=== PATIENT | female | born 1945 | race African-American/Black ===

== ENCOUNTER 2018-10-01 18:27 | Inpatient (IN) | payer OTHER ==
[~2018-10-01] VITALS: Ht 154.9 cm; Wt 71.2 kg
[~2018-10-01 18:27] MED LIST: AMLODIPINE BESY10 MG PO; AMOXICILLIN 50500 M1 PO; BENEFIBER1 EACH PO; CARISOPRODOL 3350 MG PO; CARVEDILOL25 MG PO; COUMADIN 3 MG TA3 M1 PO; COUMADIN 5 MG TA5 M1; COZAAR 25 MG TA25 M2 PO; KLOR-CON M2020 MEQ PO; LASIX 40 MG TAB40 M2 PO; LOFIBRA160 MG PO; LOTREL 5-10 MG1 EACH PO; MEDROLDOSEPACK PO; NICORELIEF4 MG BC; NORCO 10-325 T1 EACH PO; PRILOSEC20 MG PO; RESTORIL30 MG PO
[2018-10-01 18:28] VITALS: BP 133/92
[2018-10-01] MEDS ORDERED: NEURONTIN600 MG PO (18:37)
[2018-10-01] MEDS ORDERED: COUMADIN 5 MG TA5 M1 PO (18:38)
[2018-10-01 20:33] LABS: URINE BILIRUBIN NEGATIVE (Negative); URINE BLOOD TRACE (Negative); URINE CLARITY CLEAR; URINE COLOR YELLOW; URINE GLUCOSE-RANDOM* NEGATIVE (Negative); URINE KETONES NEGATIVE (Negative); URINE LEUKOCYTES-REFLEX NEGATIVE (Negative); URINE NITRITE-REFLEX NEGATIVE (Negative); URINE PROTEIN (DIPSTICK) 2+ (Negative); URINE SPECIFIC GRAVITY >= 1.030 (1.005-1.035); URINE UROBILINOGEN 0.2 E.U./dl (0.2-1.0)
[2018-10-01 20:35] LABS: ABSOLUTE NEUTROPHILS 5.6 thou/uL (1.4-8.2); BASOPHILS 0.8 % (0.0-2.0); EOSINOPHILS 1.8 % (0.0-3.0); HEMATOCRIT 40.8 % (37.0-47.0); HEMOGLOBIN 13.9 gm/dL (12.0-15.0); LYMPHOCYTES 19.9 % (24.0-44.0); MCH 31.9 pg (26.0-34.0); MCHC 34.2 g/dL (28.0-37.0); MCV 93.3 fL (80.0-100.0); MONOCYTES 7.2 % (1.0-8.0); PLATELET COUNT 239 thou/uL (150-400); POLYS 70.3 % (36.0-66.0); RBC 4.37 mil/uL (4.20-5.00); RDW 13.6 % (10.5-14.5)
[2018-10-01 20:37] LABS: HYALINE CASTS 4-10 Moderate /LPF (None Seen); SQUAMOUS >10 Many /LPF (0-3)
[2018-10-01 20:38] LABS: URINE WBC-REFLEX 0-5 Rare /HPF (0-5)
[2018-10-01 20:39] LABS: BACTERIA-REFLEX None Seen /HPF (None Seen); CRYSTALS None Seen /LPF (None Seen); URINE RBC 0-2 Rare /HPF (0-2)
[2018-10-01 20:42] LABS: ANION GAP 10 mmol/L (7-16); BUN 23 mg/dL (7-18); CALCIUM 9.3 mg/dL (8.5-10.1); CHLORIDE 107 mmol/L (98-107); CO2 27 mmol/L (21-32); CREATININE 1.6 mg/dL (0.6-1.0); GLUCOSE 160 mg/dL (74-106); POTASSIUM 3.6 mmol/L (3.5-5.1); SODIUM 144 mmol/L (136-145)
[2018-10-01 20:44] LABS: AMP/METHAMP Negative (Negative); BARBITURATES Negative (Negative); BENZODIAZEPINES Negative (Negative); COCAINE Negative (Negative); METHADONE Negative (Negative); OPIATES POSITIVE (Negative); PCP Negative (Negative)
[2018-10-01 20:51] LABS: TROPONIN-I <0.06 ng/mL (<0.06)
[2018-10-01 22:31] LABS: CSF GLUCOSE 102 mg/dL (40-70); CSF PROTEIN 50 mg/dL (15-45)
[2018-10-01 22:48] LABS: CSF CLARITY CLEAR; CSF COLOR COLORLESS; CSF POLYS 0; CSF RBC 0 /mm3; CSF WBC 0 /mm3 (0-10); VOLUME 4 ml
--- NOTE | 2018-10-02 06:41 | NUR ---
BEHAVIORAL HEALTH NOTIFIED OF REQUEST FOR SCREENING. DR ROPER HAS TALKED WITH DAUGHTER REGARDING BEHAVIOR
[2018-10-02 11:40] VITALS: BP 142/76
[2018-10-02 12:30] VITALS: BP 181/100
--- NOTE | 2018-10-02 13:45 | NUR ---
1220: Admitted to room 258-A via gerney from [facility] ER, ambulatory from gerney to hospital bed, gait steady, pt noted to be hyper verbal, anxious, impulsive and unable to concentrate on tasks, Dr. Bryant present on unit, given update on admission. Admission assessment completed, VS done and charted, ht and wt entered. Visiting times, personal belongings policy reviewed with pt and dtr Anai, security code given to dtr, welcome packet given to dtr and to pt, questions answered. Pt observed pacing in halls, cont to be hyper verbal, occasional paranoia about drinking water, staff and other pts. [facility], family is agreeable to participate in POC.
[2018-10-02 15:00] VITALS: BP 144/77
[2018-10-02 20:01] VITALS: BP 143/81
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
[2018-10-03 06:11] LABS: INR 2.1
--- NOTE | 2018-10-03 14:48 | NUR ---
PATIENT HAS BEEN UP AND OUT ON THE UNIT, TOOK ALL MEDICATION WHOLE WHITHOUT DIFFICULTY. PATIENT IS EATING MEALS AND DRINKING FLUID WELL. PATIENT DENIES SUICIDAL AND HOMOCIDAL IDEATION. PATIENT RATED BOTH DEPRESSION AND ANXIETY 4/10. PATIENT DENIES AUDITORY/VISUAL HALLUCINATION. PRN NORCO GIVEN AT 0913 HOURS FOR RIGHT UPPER EXTREMITY PAIN 5/10, TYLENOL 650MG GIVEN AT 1411 HOURS FOR GENERALIZED PAIN. AFFECT IS FLAT, MOOD IS BLUNTED, POOR EYE CONTACT. PATIENT PARTICIPATING IN GROUP THERAPY, NO SIGN OF ACUTE DISTRESS NOTED AT THIS TIME, WILL MONITOR FOR SAFETY.
--- NOTE | 2018-10-03 17:12 | EKG ---
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
[2018-10-03 19:47] VITALS: BP 127/76
--- NOTE | 2018-10-03 23:48 | NUR ---
Care assumed of patient at 1915: Patient alert and oriented x4. Patient pleasant and cooperative. Patient smiling on occasion, making good eye contact with staff. When asked why patient was admitted to the hospital, patient stated "I have a bad temper, I need to work on that". Patient having good insight this shift. Denies SI/HI/AH/VH. No s/s of delusional or paranoia behaviors observed. Patient interacting well with other staff and peers. Patient took medication whole without difficulty. Ate 100% snack. Patient did report chronic pain to right lower extremity. Patient provided PRN Hydrocodone. At 1 hour f/u, patient resting quietly in bed. Patient has woken once to use the bathroom but went back to bed without difficulty.
[2018-10-04 06:19] LABS: INR 2.3; PROTIME 23.4 Seconds (9.3-11.4)
[2018-10-04 06:26] LABS: CALCIUM 9.3 mg/dL (8.5-10.1); CREATININE 1.2 mg/dL (0.6-1.0); POTASSIUM 3.9 mmol/L (3.5-5.1)
[2018-10-04 08:00] VITALS: BP 140/78
--- NOTE | 2018-10-04 15:40 | NUR ---
[id number] PLEASANT AND COOPERATIVE. PARTICIPATED IN GROUPS AND ATE MEALS IN DINNING ROOM. CONTINENT OF BOWEL AND BLADDER. HAD VISITORS DURING VISITNG HOURS. PLAYED CARDS IN DAY ROOM.
[2018-10-04 19:25] VITALS: BP 140/81
--- NOTE | 2018-10-04 21:59 | NUR ---
PATIENT UP IN DAYROOM I CAME ON SHIFT AT 1900. ASSESSED PATIENT AND ALL WNL. PATIENT WAS PLEASANT AND WHEN ASKED WHY SHE WAS HERE SHE RESPONDED THAT SHE HAD HAD A NERVOUS BREAKDOWN. PATIENT WAS COOPERATIVE. WHEN I WENT TO GIVE HER HER HS MEDS SHE REFUSED TO TAKE THEM UNTIL THE DOCTOR ORDERED SOMETHING FOR SLEEP. SHE STATES SHE HASN'T SLEPT FOR [address] TORRES WAS ON UNIT AND HE SPOKE WITH PATIENT. HE ORDERED HER TRAZADONE 50MG AT HS. WHEN I WENT TO GIVE HER MEDS TO HER, I LET HER SEE THAT I ALSO HAD THE NEW SLEEP MED. SHE WAS REFUSING AT FIRST TO TAKE THE MEDS BECAUSE IT WAS NOT TEMAZEPAM. SHE SAID SHE WOULD ONLY TAKE IT AND IF IT DIDN'T WORK THAT SHE WANTED ME TO PROMISE TO CALL HER PCP FOR TEMAZEPAM. I TOLD HER I WOULD CALL THE DR FUNCTIONAL MENTAL DISABILITY TEACHER BUT NOT HER PCP. ALSO TOLD HER TO NOT SET HERSELF UP FOR FAILURE BY SAYING THE MED WOULD NOT WORK FOR HER. SHE TOOK THE MEDS BUT CONTINUES TO COMPLAIN AND STATING SHE'S NOT SLEEPY. DR TORRES IS AWARE OF THIS. PATIENT NOW COMING TO NURSE STATION WANTING ME TO CHECK HER BP AGAIN. I TOLD HER TO HAVE A SEAT AND I WILL BE WITH HER SOON I FINISH THIS NOTE. HER BP AT 1999 WAS 140/81.
--- NOTE | 2018-10-04 22:11 | NUR ---
PATIENT MANUAL BP WAS 154/74. PATIENT STATES SHE HAS HEADACHE AND FEELS JITTERY. SHE APPEARS SLEEPY AND SPEECH IS DROWSY. SHE SAYS SHE SHOULD FEEL SLEEPY BY NOW BUT SHE STATES SHE IS WIDE AWAKE. I TOLD HER MAYBE SHE SHOULD LAY DOWN AND REST AND LET THE TYLENOL SHE HAD KICK IN FOR HER SLIGHT HEADACHE AND GIVE HERSELF MORE TIME TO TRY AND SLEEP. PATIENT WENT BACK TO ROOM TO LAY DOWN. STILL COMPLAINING THAT SHE DIDN'T GET TEMAZEPAM. TOLD HER I WOULD BE IN TO CHECK ON HER A LITTLE LATER. PATIENT APPEARS TO BE FIGHTING SLEEP.
[2018-10-04 23:45] VITALS: BP 140/81
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
[2018-10-05 06:11] LABS: INR 3.2; PROTIME 33.3 Seconds (9.3-11.4)
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
[2018-10-05 09:19] VITALS: BP 132/82
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
--- NOTE | 2018-10-05 14:39 | NUR ---
Pt came in spoke with SW concerning d/c AMA. Pt stated that she does not want to be here, and requested to recieve paper to make the request valid. SW will follow-up with pt after documentation is recieved.
[2018-10-05] MEDS ORDERED: COUMADIN 5 MG TA5 M1 PO (15:14)
[2018-10-05 15:50] VITALS: BP 132/82
[2018-10-05 17:33] VITALS: BP 132/82
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
--- NOTE | 2018-10-05 17:37 | NUR ---
PT HAS BEEN REQUESTING AMA DISCHARGE THROUGHOUT SHIFT-THIS RN SPOKE WITH PTS DAUGHTER RONALDO AT 1145 RE DC AND FAMILY DESIRES PT TO STAY UNTIL MD DISCHARGES-PT AGAIN REFUSES STATING "I DON'T NEED TO BE HERE IT IS MAKING ME WORSE-I NEED TO BE HOME SO I CAN TAKE MY OWN MEDICATIONS AT THE RIGHT DOSE AND MY SLEEPING PILL. DENIES SI/SH/HI-FULL RANGE AFFECT-ALERT AND ORIENTED X 3 AT TIME OF DC-NO NOTED OR REPORTED PSYCHOSIS. DAUGHTERS RONALDO AND ALISON NOTIFIED VIA PHONE BY PT OF DC AND PLAN TO MEET HER AT HOUSE WITH KEYS-DENIES QUESTIONS OR CONCERNS RE DC MEDICATIONS,F/U RECOMMENDED AND LAB WORK PT/INR ORDERED FOR 10/09.
--- NOTE | 2018-10-07 19:16 | D ---
[facility] [place] [address] DISCHARGE SUMMARY Name: COTY FINE Room #: 528A-A [facility] IN M.R.#: [id number] Admission: 10/02/18 Attend Phys: Oniel Bryant DO Discharge: 10/05/18 Date of : 45 Report #: [id number] THIS REPORT FOR: //name// [facility] DATE OF SERV[facility]: 10/05/2018 INPATIENT PSYCHIATRIC DISCHARGE SUMMARY Note: The patient is leaving Against Medical Advice ATTENDING PHYSICIAN: Oniel Bryant DO. FILLER SHAKER: Oniel Carter M.D. DISCHARGE DIAGNOSES: Bipolar 1 disorder, most recent episode manic, severe. MEDICAL COMORBIDITIES: Include mitral valve replacement as well as hypertension and hyperlipidemia. DISCHARGE PLAN: The patient requested discharge against medical advice. I advised her against this as lithium level was not back over several days out from last. Also, the patient has been more irritable. Nonetheless, it was not an involuntary criteria met. DISCHARGE MEDICATIONS: Limited due to her AMA status. I did give a 7-day prescription for warfarin at 7.5 mg p.o. daily. Based on the current INR trend, the patient knows she will need a blood draw this coming Tuesday. Last INR of 3.2 today. REASON FOR ADMISSION: Acute manic symptoms. HOSPITAL COURSE: The patient was started on lithium carbonate 300 mg twice per day. Her renal function improved from a creatinine 1.6 to 1.2. The patient is complaining because I would not prescribe her further temazepam as concerns about this both being a useless medication and also, the patient having some degree of substance use problems mainly. sig labs: cbc wnl cmp Cr 1.6 to 1.2, UDS + Marajuana, Opiates CSF cultures negative- gramstain aerobic, anaerobic PHYSICAL EXAMINATION: MUSCULOSKELETAL: Disheveled female with facial hirsutism. MENTAL STATUS EXAMINATION: This is a well-developed, well-nourished white female, appearing stated age. Attention intact. Concentration intact. Speech a bit loud. Thought process linear and limited. Thought content focused on discharge. Denied SI or HI. Some helplessness regarding being in the hospital. Insight limited. Judgment fair to limited. Fund of knowledge below average. [facility] [address] [place] [address] DISCHARGE SUMMARY Name: BBAATUNDELECKRONE Room #: [facility]-A [facility] IN M.R.#: [id number] Admission: 10/02/18 Attend Phys: Oniel Bryant DO Discharge: 10/05/18 Date of : 45 Report #: [id number] Prognosis for this patient is guarded, given leaving the hospital against medical advice. <ELECTRONICALLY SIGNED> By: Oniel Bryant DO 10/07/18 [id number] Oniel Bryant, DO /nt
--- NOTE | 2018-10-07 19:56 | H ---
[facility] [place] [address] HISTORY AND PHYSICAL Name: COTY FINE Room #: 528A-A DIS IN M.R.#: [id number] Admission: 10/02/18 Attend Phys: Oniel Bryant DO Discharge: 10/05/18 Date of : 45 Report #: [id number] THIS REPORT FOR: //name// [facility] DATE OF SERVICE: 10/02/2018 INPATIENT PSYCHIATRIC EVALUATION PRIMARY TEAM ATTENDING: Oniel Bryant DO INFORMATION ASSOC: Oniel Carter MD REASON FOR ADMISSION: The patient brought by EMS for altered mental status reportedly as she was not acting herself. HISTORY OF PRESENT ILLNESS: This is a 73-year-old black female, community dwelling allegedly, living alone. Her daughter presented with her to the hospital. Family saw the patient last on the in the evening and stated that behavior was very abnormal. The patient lives alone. Her neighbor said she has been acting this way all morning, described as yelling outside, speaking quickly. The patient is known to smoke marijuana regularly heavily. It is not known if her source changed or she was exposed to any contaminants. She reportedly has a history of diabetes mellitus and kidney problems. Her creatinine was 1.69 on dialysis. Blood sugar was 179 at the ER presentation. When the patient was interviewed in the ER, she was rambling on about her medical care and facilities. 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 Her speech was clearly pressured, difficult for the staff to understand. Regarding the medical history, kidney disease since 2011, does not take medications for this. She did come in with a bag of medication. She is a bit belligerent when asked exactly what medication she takes. PAST MEDICAL HISTORY: Includes congestive heart failure, pneumonia, hypertension. Also has a medical history of chronic kidney disease stage 3. PAST SURGICAL HISTORY: Tubal ligation, mitral valve replacement. CURRENT HOME MEDICATIONS: Amoxicillin 500 mg p.o. t.i.d. Reported medications, Coreg 25 mg p.o. b.i.d., amlodipine 10 mg p.o. daily, fenofibrate 160 mg p.o. daily, temazepam 30 mg p.o. at bedtime p.r.n., potassium chloride 20 mEq p.o. daily, Lasix 40 mg p.o. daily, carisoprodol 350 mg that is Soma q.6, Guar Gum, hydrocodone 10/325 q.4, amlodipine besylate 1 tablet each, nicotine gum, gabapentin 600 mg t.i.d. Initially, it was reported she was no longer taking warfarin; however, she last filled in August and is supposed to be taking as her INR was 2.0, so I think she is taking that. [facility] [address] [place] [address] HISTORY AND PHYSICAL Name: BABATUNDEVANLUE Room #: 528A-A DIS IN M.R.#: [id number] Admission: 10/02/18 Attend Phys: Oniel Bryant, Discharge: 10/05/18 Date of : 45 Report #: [id number] ALLERGIES: CLONIDINE, CODEINE, TIKOSYN, RAMIPRIL AND TRAMADOL. SOCIAL HISTORY: She smokes cigarettes. Denied alcohol use. Report from daughter, recreational drug use. DEVELOPMENTAL HISTORY: The patient does have a family history of bipolar disorder, was not able to get a good developmental history from her. REVIEW OF SYSTEMS: From the Emergency Room: CONSTITUTIONAL: Denies fever, chills, malaise, unexplained weight change. EYES: Denies eye pain, visual change or discharge. HENT: Denies hearing changes, ear drainage, ear infections, ear pain, neck pain or neck stiffness. RESPIRATORY: Denies cough, shortness of breath, hemoptysis or respiratory distress. CARDIOVASCULAR: Denies chest pain, chest pain with exertion or edema. GASTROINTESTINAL: Denies abdominal pain, nausea, vomiting or diarrhea. GENITOURINARY: Denies burning, frequency or dysuria. MUSCULOSKELETAL: Denies back pain, joint pain, muscle weakness or myalgias. SKIN: Denies rash. NEUROLOGIC: Denies weaknesses, headache or loss of consciousness. PSYCHIATRIC: As above. Otherwise, 10-point review of systems was negative. PHYSICAL EXAMINATION: VITAL SIGNS: Weight in the ER was 71.214 kilos. BP 133/92, pulse ox 93%, temperature 36.6, pulse 108, respirations 20. She was on oxygen in the ER; however, that was removed. GENERAL: She is well developed, disheveled, dread hair, had gross facial hirsutism. Physical exam grossly normal. LABORATORY DATA: EKG had sinus rhythm, rate of 76. I did not know this but looks like they did a spinal tap. CSF glucose 102. CSF total protein 50. Urine drug screen positive for marijuana, positive for opiates. Kidney function, BUN 23, creatinine 1.6, glucose 160. Other electrolytes were normal with sodium 144, potassium 3.6, chloride 107, bicarb 27. As stated, BUN 23, creatinine 1.6. CK was 112. LFTs, it looks like were not completed in the ER. CBC was normal with white count of 8, H and H 13.9 and 40.8, platelet count 239. Urinalysis showed 4-10 hyaline casts, greater than 10 squamous cells, negative leukocyte esterase, no bacteria seen. It looks like there is a CSF viral culture with Gram stain, aerobic and anaerobic cultures pending. Followup chest x-ray showed no acute abnormalities. [facility] [address] [place] [address] HISTORY AND PHYSICAL Name: COTY FINE Room #: 528A-A DIS IN M.R.#: [id number] Admission: 10/02/18 Attend Phys: Oniel Bryant, DO Discharge: 10/05/18 Date of : 45 Report #: [id number] MENTAL STATUS EXAMINATION: This is a well-developed black female of disheveled shape, pressured speech, variable attention. Concentration limited. Thought process linear at times. Mood and affect congruent, euphoric. Denied SI or HI. Denied hopelessness, helplessness. Denied homicidal intent or plan. Memory not formally tested. Insight limited. Judgment limited. Fund of knowledge below average. FORMULATION: A 73-year-old black female, presenting for change in the mental status. The patient is a suboptimal historian. Limited time was available to get additional information from her daughter that was spent covering the warfarin issue which the patient needs to be on. DIAGNOSIS: Bipolar 1 disorder, most recent episode, severe, with psychotic features, cannot exclude the possibility this was drug-induced PLAN: Risks versus benefits were discussed. I think in the setting of having desirable antimanic qualities, especially with someone in her 70s, it is worth it to see if she can tolerate a lithium regimen. We will start her on [address] Carter will be managing her warfarin. Otherwise, we will continue amlodipine, gabapentin, Coreg, hydrocodone, other house PRNs. ESTIMATED LENGTH OF STAY: 10-14 days. TIME SPENT ON THIS EVALUATION: About 45 minutes. STRENGTHS: She is insured. WEAKNESSES: Advancing age, drug use, limited family support. <ELECTRONICALLY SIGNED> By: Oniel Bryant DO 10/07/18 [id number] Oniel Bryant DO /nt
== END 2018-10-05 17:50 | disposition left against medical advice (07) | DRG 885 ==
LOC: ER 18:27 → EROBS 10-02 10:49 → SBH 10-02 10:49
PROVIDERS: Emergency Medicine; Nurse Practitioner; ADMIT Psychiatry & Neurology Psychiatry
DX: F31.9 Bipolar disorder, unspecified (principal); F23 Brief psychotic disorder; I13.0 Hypertensive heart and chronic kidney disease with heart failure and stage 1 through stage 4 chronic kidney disease, or unspecified chronic kidney disease; I50.9 Heart failure, unspecified; E78.00 Pure hypercholesterolemia, unspecified; N18.3 Chronic kidney disease, stage 3 (moderate); F41.9 Anxiety disorder, unspecified; E78.5 Hyperlipidemia, unspecified; F01.50 Vascular dementia, unspecified severity, without behavioral disturbance, psychotic disturbance, mood disturbance, and anxiety; Z53.21 Procedure and treatment not carried out due to patient leaving prior to being seen by health care provider; Z95.2 Presence of prosthetic heart valve; Z88.6 Allergy status to analgesic agent; Z88.8 Allergy status to other drugs, medicaments and biological substances; Z79.01 Long term (current) use of anticoagulants
CPT/HCPCS: 10880